=== PATIENT | male | born 1995 | race American Indian/Alaskan Native ===

== ENCOUNTER 2019-03-31 23:50 | Emergency (ER) | payer SELFPAY ==
[2019-04-01 00:59] VITALS: BP 132/92
== END 2019-04-01 04:22 | disposition left against medical advice (07) ==
LOC: ED 23:50
DX: J45.909 Unspecified asthma, uncomplicated (principal); Z53.21 Procedure and treatment not carried out due to patient leaving prior to being seen by health care provider